=== PATIENT | female | born 1960 | race Caucasian/White ===

== ENCOUNTER 2021-04-20 10:51 | Emergency (ER) | payer MEDICARE, OTHER ==
[~2021-04-20] VITALS: Ht 170.2 cm; Wt 74.4 kg
[~2021-04-20 10:51] MED LIST: BENZTROPINE ME0.5 MG PO; BROMOCRIPTINE2.5 MG PO; CATAPRES0.2 MG PO; CIPRO500 MG PO; GABAPENTIN300 MG PO; LOXAPINE10 MG PO; RISPERIDONE2 MG PO; TRAZODONE HCL100 MG PO
--- OUTSIDE RECORDS SUMMARY | 2021-04-20 10:54 | XMS ---
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 Care Guidelines exist for the following facilities: [facility] ( 11/05/2020 ) [place] [facility] MO[facility] NOTE: Visits indicate total known visits. ED/UCC VISIT TRACKING (12 MO.) 04/20/2021 10:[address] [facility] [place] TYPE: Emergency COMPLAINT: - FEVER, ABD PAIN, NAUSEA INPATIENT VISIT TRACKING (12 MO.) No inpatient visits to display in this time frame [email or web address]
[2021-04-20] MEDS ORDERED: GEODON60 MG PO (11:25)
[2021-04-20] MEDS ORDERED: ZITHROMAX250 MG PO (15:01)
[2021-04-20] MEDS ORDERED: ONDANSETRON ODT4 MG PO (15:01)
--- NOTE | 2021-04-20 19:21 | EKG ---
[facility] [address] [place], [place] [address] Signed Normal sinus rhythm Left axis deviation Abnormal ECG When compared with ECG of 17-NOV-2016 15:57, No significant change was found Confirmed by RILEY MASCORRO MD ([id number] on 04/20/2021 7:20:58 PM Electronically Signed By: RILEY MASCORRO MD 04/20/211920 PATIENT NAME: DAYANA DEVRIES Electrocardiogram DATE OF : 62 PHYSICIAN: RILEY MASCORRO MD REPORT #: [id number] REPORT IS CONFIDENTIAL AND NOT TO BE RELEASED WITHOUT AUTHORIZATION
== END 2021-04-20 15:35 | disposition home or self-care (01) ==
LOC: ED 10:51
DX: J18.9 Pneumonia, unspecified organism (principal); E86.0 Dehydration; K21.9 Gastro-esophageal reflux disease without esophagitis; Z20.822 Contact with and (suspected) exposure to COVID-19; F17.200 Nicotine dependence, unspecified, uncomplicated; Z79.899 Other long term (current) drug therapy
CPT/HCPCS: 71045; 74018; 80053; 81001; 83605; 83690; 83735; 85025; 93005; 93010; 96374; 99284-25; C9803; J1885; J7030; U0003

== ENCOUNTER 2022-06-17 09:55 | Emergency (ER) | payer MEDICARE, OTHER ==
[~2022-06-17] VITALS: Ht 170.2 cm; Wt 66.5 kg
[~2022-06-17 09:55] MED LIST changes: +GEODON60 MG PO; +ONDANSETRON ODT4 MG PO; +ZITHROMAX250 MG PO
--- OUTSIDE RECORDS SUMMARY | 2022-06-17 09:58 | XMS ---
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 ED/UCC VISIT TRACKING (12 MO.) 06/17/2022 09:[address] [facility] [place] TYPE: Emergency COMPLAINT: - FACIAL/THROAT SWELLING/ITCHING INPATIENT VISIT TRACKING (12 MO.) No inpatient visits to display in this time frame [email or web address]
[2022-06-17] MEDS ORDERED: FAMOTIDINE20 MG PO ×2 (10:34→11:29)
[2022-06-17] MEDS ORDERED: CLARITIN10 M2 PO (10:34)
[2022-06-17] MEDS ORDERED: ALLERGY25 MG PO (10:35)
[2022-06-17] MEDS ORDERED: ALLERGY RELIEF25 MG PO (11:29)
[2022-06-17] MEDS ORDERED: PREDNISONE20 MG PO (11:29)
== END 2022-06-17 11:36 | disposition home or self-care (01) ==
LOC: ED 09:55
DX: L50.0 Allergic urticaria (principal); T37.8X5A Adverse effect of other specified systemic anti-infectives and antiparasitics, initial encounter; F17.200 Nicotine dependence, unspecified, uncomplicated; Z88.8 Allergy status to other drugs, medicaments and biological substances; Z79.899 Other long term (current) drug therapy
CPT/HCPCS: 99283; J7512; Q0163